=== PATIENT | female | born 1955 | race Asian ===

== ENCOUNTER 2016-04-29 20:05 | Inpatient (IN) | payer OTHER ==
[~2016-04-29] VITALS: Ht 165.1 cm; Wt 46.0 kg
[2016-04-29] MEDS ORDERED: ALBUTEROL SULFATE 2.5 MG/0.5 ML NEB SOLUTION NEB ONE (20:15)
[2016-04-29] MEDS ORDERED: IPRATROPIUM BROMIDE 0.5 MG/2.5 ML NEB SOLUTION NEB ONE (20:15)
[2016-04-29] MEDS ORDERED: ASPIRIN 325 MG TABLET PO ONE (21:00)
[2016-04-29] MEDS ORDERED: MethylPREDNISolone SOD SUCC 125 MG/2 ML VIAL IVP ONE (21:00)
[2016-04-29] MEDS ORDERED: CefTRIAXone 1 GM/DEXTROSE 50 ML IV ONE (21:00)
[2016-04-29 21:22] LABS: HEMATOCRIT 36.2 % (36-46); HEMOGLOBIN 12.1 g/dL (12.0-16.0); MEAN CORPUSCULAR HEMOGLOBIN 27.9 pg (26.0-34.0); MEAN CORPUSCULAR HGB CONC 33.4 G/dL (31.0-37.0); MEAN CORPUSCULAR VOLUME 84 fL (80-100); PLATELET COUNT (AUTO) 224 K/uL (150-450); RED BLOOD CELL COUNT(AUTO) 4.33 MIL/uL (4.00-5.20); WHITE BLOOD COUNT (AUTO) 13.6 K/uL (4.5-11.0)
[2016-04-29] MEDS: OXYGEN THERAPY IH SCH (21:42)
[2016-04-29 21:43] LABS: ALANINE AMINOTRANSFERASE 103 U/L (12-78); ALBUMIN 3.4 g/dL (3.4-5.0); ANION GAP 12 mmol/L (8-16); ASPARTATE AMINOTRANSFERASE 81 U/L (15-37); BILIRUBIN,TOTAL 0.9 mg/dL (0.1-1.0); CALCIUM, TOTAL 8.6 mg/dL (8.8-10.5); CARBON DIOXIDE 26 mmol/L (22-29); CHLORIDE 89 mmol/L (98-107); CREATININE 0.69 mg/dL (0.60-1.30); GLOMERULAR FILTR. RATE CALC > 60 mL/min (>60); SODIUM SERUM 127 mmol/L (136-145); TOTAL PROTEIN, SERUM 7.8 g/dL (6.4-8.2); UREA NITROGEN, BLOOD 10 mg/dL (7-18)
[2016-04-29 21:47] LABS: B-TYPE NATRIURETIC PEPTIDE 92 pg/mL (0-100)
[2016-04-29 21:57] LABS: INFLUENZA TYPE B NEGATIVE FOR TYPE B (NEGATIVE)
[2016-04-29] MEDS ORDERED: POTASSIUM CHLORIDE 10% 40 MEQ/30 ML LIQUID UDCUP PO ONE (22:00)
[2016-04-29 22:14] LABS: BAND NEUTROPHILS % (MANUAL) 34 % (1-5); LYMPHOCYTES % (MANUAL) 4 % (22-44); TOTAL CELLS COUNTED 100
[2016-04-29] MEDS ORDERED: DEXTROSE 50%-WATER 25 GM/50 ML SYRINGE IVP PRN (22:15)
[2016-04-29] MEDS ORDERED: OxyCODONE HCL/ACETAMINOPHEN 5-325 MG TABLET PO PRN (22:15)
[2016-04-29] MEDS ORDERED: POTASSIUM CHL 10 MEQ/WATER 50 ML IV PRN (22:15)
[2016-04-29] MEDS ORDERED: SODIUM CHLORIDE 0.9% 1,000 ML IV ONE (22:15)
[2016-04-29] MEDS ORDERED: POTASSIUM CHLORIDE 20 MEQ ER TABLET PO PRN (22:15)
[2016-04-29] MEDS ORDERED: MAGNESIUM HYDROXIDE SUSPENSION 30 ML UDCUP PO PRN (22:15)
[2016-04-29] MEDS ORDERED: ACETAMINOPHEN 325 MG TABLET PO PRN (22:15)
[2016-04-29 22:37] LABS: APPEARANCE,URINE CLEAR (CLEAR); GLUCOSE, URINE (UA) 500 mg/dL (NEGATIVE); KETONES,URINE NEGATIVE (NEGATIVE); LEUKOCYTE ESTERASE ,URINE NEGATIVE (NEGATIVE); PH,URINE 6.5 (5.0-8.0); PROTEIN,URINE SEE CONFIRM (NEGATIVE)
[2016-04-29 22:42] LABS: OCCULT BLOOD,URINE TRACE (NEGATIVE)
[2016-04-29 22:43] LABS: SQUAMOUS EPITHELIAL CELL,UR Few /LPF (None Seen); SULFOSALICYLIC ACID,URINE 1+ (Negative)
[2016-04-29] MEDS: OSELTAMIVIR PHOSPHATE 75 MG CAPSULE PO SCH (22:52)
[2016-04-29] MEDS: IPRATROPIUM BROMIDE 0.5 MG/2.5 ML NEB SOLUTION NEB SCH (22:56)
[2016-04-29] MEDS: ALBUTEROL SULFATE 2.5 MG/0.5 ML NEB SOLUTION NEB SCH (22:57)
[2016-04-29] MEDS ORDERED: AZITHROMYCIN 500 MG/NS 250 ML IV SCH (23:00)
[2016-04-29] MEDS: MethylPREDNISolone SOD SUCC 125 MG/2 ML VIAL IVP SCH (23:12)
[2016-04-29] MEDS: HEPARIN SODIUM,PORCINE 5,000 UNITS/ML VIAL SQ SCH (23:24)
[2016-04-30 00:16] LABS: GLUCOSE,POINT OF CARE 224 MG/DL (70-110)
[2016-04-30] MEDS: INSULIN ASPART 100 UNITS/ML SQ PRN ×4 (00:16→20:38)
[2016-04-30] MEDS: IPRATROPIUM BROMIDE 0.5 MG/2.5 ML NEB SOLUTION NEB SCH ×6 (03:15→23:31)
[2016-04-30] MEDS: ALBUTEROL SULFATE 2.5 MG/0.5 ML NEB SOLUTION NEB SCH ×6 (03:15→23:31)
[2016-04-30] MEDS: MethylPREDNISolone SOD SUCC 125 MG/2 ML VIAL IVP SCH ×3 (05:20→17:30)
[2016-04-30 06:01] LABS: HEMATOCRIT 38.5 % (36-46); HEMOGLOBIN 12.8 g/dL (12.0-16.0); MEAN CORPUSCULAR HGB CONC 33.2 G/dL (31.0-37.0); MEAN CORPUSCULAR VOLUME 84 fL (80-100); PLATELET COUNT (AUTO) 238 K/uL (150-450); RED BLOOD CELL COUNT(AUTO) 4.58 MIL/uL (4.00-5.20); RED CELL DISTRIBUTION WIDTH 12.8 % (11.5-14.5); WHITE BLOOD COUNT (AUTO) 11.3 K/uL (4.5-11.0)
[2016-04-30 06:11] LABS: ANION GAP 9 mmol/L (8-16); CALCIUM, TOTAL 9.3 mg/dL (8.8-10.5); CARBON DIOXIDE 28 mmol/L (22-29); CHLORIDE 98 mmol/L (98-107); CREATININE 0.82 mg/dL (0.60-1.30); GLOMERULAR FILTR. RATE CALC > 60 mL/min (>60); POTASSIUM 4.2 mmol/L (3.5-5.1); SODIUM SERUM 135 mmol/L (136-145); UREA NITROGEN, BLOOD 10 mg/dL (7-18)
[2016-04-30 06:31] LABS: BAND NEUTROPHILS % (MANUAL) 41 % (1-5); LYMPHOCYTES % (MANUAL) 4 % (22-44); TOTAL CELLS COUNTED 100
[2016-04-30 06:46] LABS: GLUCOSE,POINT OF CARE 208 MG/DL (70-110)
[2016-04-30 08:49] VITALS: BP 134/79
[2016-04-30] MEDS: DOCUSATE SODIUM 100 MG CAPSULE PO SCH ×3 (09:00→20:41)
[2016-04-30] MEDS: OXYGEN THERAPY IH SCH ×2 (09:20→20:39)
[2016-04-30] MEDS: HEPARIN SODIUM,PORCINE 5,000 UNITS/ML VIAL SQ SCH ×2 (09:21→15:18)
[2016-04-30 11:38] VITALS: BP 130/76
[2016-04-30] MEDS ORDERED: PNEUMOCOCCAL VACCINE POLYVALENT 0.5 ML VIAL [PPSV23] IM ONE (11:45)
[2016-04-30] MEDS: PANTOPRAZOLE SODIUM 40 MG DR TABLET PO SCH (12:07)
[2016-04-30] MEDS: OSELTAMIVIR PHOSPHATE 75 MG CAPSULE PO SCH ×2 (12:10→20:34)
[2016-04-30] MEDS ORDERED: 0.9% SODIUM CHLORIDE 10 ML SYRINGE IVP PRN (14:15)
[2016-04-30 16:18] VITALS: BP 127/60
[2016-04-30 17:10] VITALS: BP 129/72
[2016-04-30 19:37] VITALS: BP 150/86
[2016-04-30 20:07] LABS: GLUCOSE COMMENT 1 Received Meds; GLUCOSE,POINT OF CARE 306 MG/DL (70-110)
[2016-04-30 20:07] LABS: GLUCOSE,POINT OF CARE 208 MG/DL (70-110)
[2016-04-30 23:53] VITALS: BP 131/75
[2016-05-01] MEDS: MethylPREDNISolone SOD SUCC 125 MG/2 ML VIAL IVP SCH ×3 (00:28→11:16)
[2016-05-01] MEDS: HEPARIN SODIUM,PORCINE 5,000 UNITS/ML VIAL SQ SCH ×3 (00:31→16:02)
[2016-05-01] MEDS: IPRATROPIUM BROMIDE 0.5 MG/2.5 ML NEB SOLUTION NEB SCH ×4 (02:58→16:13)
[2016-05-01] MEDS: ALBUTEROL SULFATE 2.5 MG/0.5 ML NEB SOLUTION NEB SCH ×4 (02:58→16:13)
[2016-05-01 04:53] VITALS: BP 118/71
[2016-05-01] MEDS ORDERED: DEXTROSE 50%-WATER 25 GM/50 ML SYRINGE IVP PRN (05:45)
[2016-05-01] MEDS: INSULIN ASPART 100 UNITS/ML SQ PRN ×2 (06:14→11:20)
[2016-05-01 06:41] LABS: EOSINOPHILS % (AUTO) 0 % (1.0-6.0); HEMATOCRIT 34.7 % (36-46); HEMOGLOBIN 11.4 g/dL (12.0-16.0); LYMPHOCYTES # (AUTO) 0.7 K/uL (1.0-4.8); LYMPHOCYTES % (AUTO) 6.4 % (22.0-44.0); MEAN CORPUSCULAR HEMOGLOBIN 27.9 pg (26.0-34.0); MEAN CORPUSCULAR HGB CONC 32.9 G/dL (31.0-37.0); MEAN CORPUSCULAR VOLUME 85 fL (80-100); MONOCYTES # (AUTO) 0.3 K/uL (0.1-1.0); MONOCYTES % (AUTO) 2.3 % (2.0-9.0); NEUTROPHILS # (AUTO) 10.2 K/uL (1.8-7.7); PLATELET COUNT (AUTO) 248 K/uL (150-450); RED BLOOD CELL COUNT(AUTO) 4.09 MIL/uL (4.00-5.20); RED CELL DISTRIBUTION WIDTH 13.6 % (11.5-14.5); WHITE BLOOD COUNT (AUTO) 11.1 K/uL (4.5-11.0)
[2016-05-01 06:49] LABS: NEUTROPHILS % (AUTO) 91.3 % (40.0-70.0); RBC MORPHOLOGY COMMENT NORMAL RBC MORPH
[2016-05-01 06:53] LABS: ANION GAP 11 mmol/L (8-16); CARBON DIOXIDE 26 mmol/L (22-29); CHLORIDE 100 mmol/L (98-107); CREATININE 0.81 mg/dL (0.60-1.30); GLOMERULAR FILTR. RATE CALC > 60 mL/min (>60); POTASSIUM 3.3 mmol/L (3.5-5.1); SODIUM SERUM 137 mmol/L (136-145); UREA NITROGEN, BLOOD 17 mg/dL (7-18)
[2016-05-01 07:31] LABS: ALANINE AMINOTRANSFERASE 73 U/L (12-78); ALBUMIN 2.9 g/dL (3.4-5.0); ASPARTATE AMINOTRANSFERASE 31 U/L (15-37); BILIRUBIN,TOTAL 0.2 mg/dL (0.1-1.0); TOTAL PROTEIN, SERUM 7.1 g/dL (6.4-8.2)
[2016-05-01] MEDS: OXYGEN THERAPY IH SCH (07:42)
[2016-05-01 08:02] VITALS: BP 130/75
[2016-05-01] MEDS: OSELTAMIVIR PHOSPHATE 75 MG CAPSULE PO SCH (08:32)
[2016-05-01] MEDS: PANTOPRAZOLE SODIUM 40 MG DR TABLET PO SCH (08:33)
[2016-05-01] MEDS: DOCUSATE SODIUM 100 MG CAPSULE PO SCH (08:34)
[2016-05-01 11:24] VITALS: BP 122/70
[2016-05-01] MEDS ORDERED: OSEL75 PO (16:19)
[2016-05-01] MEDS ORDERED: DOXY150T PO (16:19)
[2016-05-01] MEDS ORDERED: ALBU8.5H IH (16:20)
[2016-05-01] MEDS ORDERED: PRED5 PO (16:21)
[2016-05-01 19:56] LABS: GLUCOSE,POINT OF CARE 304 MG/DL (70-110)
[2016-05-02 07:01] LABS: GLUCOSE COMMENT 1 Received Meds; GLUCOSE,POINT OF CARE 332 MG/DL (70-110)
[2016-05-02 07:05] LABS: GLUCOSE COMMENT 1 Received Meds; GLUCOSE,POINT OF CARE 236 MG/DL (70-110)
== END 2016-05-01 16:55 | disposition home or self-care (01) | DRG 140 ==
LOC: EMS 20:07 → 5N 04-30 06:12
PROVIDERS: ADMIT Internal Medicine; ATTEND Internal Medicine
DX: J44.1 Chronic obstructive pulmonary disease with (acute) exacerbation (principal); J96.91 Respiratory failure, unspecified with hypoxia; I10 Essential (primary) hypertension; E87.6 Hypokalemia; J10.1 Influenza due to other identified influenza virus with other respiratory manifestations; E87.1 Hypo-osmolality and hyponatremia; J45.909 Unspecified asthma, uncomplicated; E11.9 Type 2 diabetes mellitus without complications; J40 Bronchitis, not specified as acute or chronic; F17.200 Nicotine dependence, unspecified, uncomplicated; Z91.14 Patient's other noncompliance with medication regimen; Z71.6 Tobacco abuse counseling; Z28.21 Immunization not carried out because of patient refusal
CPT/HCPCS: 82962; 83605; 84132; 87040; 87804; 93005; 94640; 96365; 96367; 96375; 99285; J0456; J0696; J1644; J1815; J2930; J7030

== ENCOUNTER 2017-04-13 09:44 | Emergency (ER) | payer OTHER ==
[~2017-04-13] VITALS: Ht 152.4 cm; Wt 54.5 kg
[~2017-04-13 09:44] MED LIST: ALBU8.5H8 IH; DOXY150T PO; OSEL75 PO; PRED5 PO
[2017-04-13] MEDS ORDERED: LISI-622 PO (09:51)
[2017-04-13] MEDS ORDERED: ASPI-556 PO (09:51)
[2017-04-13 10:57] LABS: BASOPHILS % (AUTO) 0.6 % (0.0-2.0); EOSINOPHILS % (AUTO) 1.7 % (1.0-6.0); HEMATOCRIT 38.6 % (36-46); HEMOGLOBIN 13.2 g/dL (12.0-16.0); LYMPHOCYTES # (AUTO) 2.7 K/uL (1.0-4.8); LYMPHOCYTES % (AUTO) 42.3 % (22.0-44.0); MEAN CORPUSCULAR HEMOGLOBIN 29.6 pg (26.0-34.0); MEAN CORPUSCULAR HGB CONC 34.2 G/dL (31.0-37.0); MEAN CORPUSCULAR VOLUME 87 fL (80-100); MONOCYTES # (AUTO) 0.5 K/uL (0.1-1.0); MONOCYTES % (AUTO) 7.4 % (2.0-9.0); NEUTROPHILS # (AUTO) 3.1 K/uL (1.8-7.7); PLATELET COUNT (AUTO) 272 K/uL (150-450); RED BLOOD CELL COUNT(AUTO) 4.46 MIL/uL (4.00-5.20); RED CELL DISTRIBUTION WIDTH 12.9 % (11.5-14.5)
[2017-04-13 11:07] LABS: ANION GAP 8 mmol/L (8-16); CALCIUM, TOTAL 9.3 mg/dL (8.8-10.5); CARBON DIOXIDE 31 mmol/L (22-29); CHLORIDE 99 mmol/L (98-107); CREATININE 0.73 mg/dL (0.60-1.30); GLOMERULAR FILTR. RATE CALC > 60 mL/min (>60); GLUCOSE,RANDOM 108 mg/dL (70-110); POTASSIUM 3.5 mmol/L (3.5-5.1); SODIUM SERUM 138 mmol/L (136-145); UREA NITROGEN, BLOOD 14 mg/dL (7-18)
[2017-04-13 11:14] LABS: ALANINE AMINOTRANSFERASE 103 U/L (12-78); ALBUMIN 4.3 g/dL (3.4-5.0); ALKALINE PHOSPHATASE 115 U/L (46-116); ASPARTATE AMINOTRANSFERASE 48 U/L (15-37); BILIRUBIN,TOTAL 0.3 mg/dL (0.1-1.0); TOTAL PROTEIN, SERUM 8.2 g/dL (6.4-8.2)
[2017-04-13 11:19] LABS: B-TYPE NATRIURETIC PEPTIDE 29 pg/mL (0-100)
[2017-04-13] MEDS ORDERED: LISINOPRIL 10 MG TABLET PO ONE (11:45)
[2017-04-13 11:58] VITALS: BP 169/105
== END 2017-04-13 12:07 | disposition home or self-care (01) ==
LOC: EMS 09:46
DX: I10 Essential (primary) hypertension (principal); F17.210 Nicotine dependence, cigarettes, uncomplicated; Z88.1 Allergy status to other antibiotic agents; Z79.82 Long term (current) use of aspirin
CPT/HCPCS: 93005; 99285